=== PATIENT | male | born 1995 | race Caucasian/White ===

== ENCOUNTER 2024-07-31 09:15 | Emergency (ER) | payer BC, SELFPAY ==
[2024-07-31 09:24] VITALS: BP 134/82
--- NOTE | 2024-07-31 10:57 | ED.GENMED ---
History of Present Illness
General
Chief Complaint: Male Genito-Urinary Symptoms
Source: patient
Time Seen by Provider: 07/31/24 10:43
History of Present Illness
History of Present Illness:
28yoM presenting for evaluation of testicle pain. Patient had a vasectomy about 18 days ago in [facility]. He was doing well initially. He sneezed about a week ago and had a sharp pain in his testicle. This lasted about 15 minutes before
resolving. He has been having a gradual worsening pain over the past week or so. He was seen by his urologist 5 days ago and was prescribed doxycycline x 1 week. Patient reports left testicle swelling over the past 2 days. He is worried that he
may have epididymitis. He denies any issues with urination. No fevers, chills, vomiting, abdominal pain, flank pain.
Phy Exam
General Physical Exam
General Presentation: well appearing and no apparent distress
General age: appears stated age
General Skin: warm and dry
General Habitus: normal
General Mental: alert
ENT Exam
ENT Exam: normocephalic
Pulmonary Exam
Pulmonary Exam: no respiratory distress
Gastrointestinal Exam
Gastrointestinal Exam: non tender, soft and non distended
Genitourinary Exam Male
Exam Male: circumcised and other (Mild swelling noted to L testicle with diffuse tenderness. No skin changes. Small scabs noted to vasectomy incision sites. No drainage or erythema noted.)
Neurological Exam
Neurological Exam: alert
[place] Coma Scale
Eye Opening: Spontaneous
Verbal Response: Oriented
Motor Response: Obeys Commands
GCS Total Score: 15
Skin Exam
Skin Exam: normal color and warm/dry
Psychiatric Exam
Psychiatric Exam: normal mood/affect
Course
Orders/Labs/Results
Orders:
Orders
07/31/24 09:46
US Scrotum Urgent
Comment:
Reason For Exam: testicular pain
07/31/24 12:08
Urinalysis Reflex To Culture Urgent
Date Specimen was Collected: 07/31/24
Time Specimen was Collected: 11:14
Chlamydia/GC by PCR Urgent
CINTHYA Source: Urine
Specimen Description:
Source:: URINE
Date Specimen was Collected: 07/31/24
Time Specimen was Collected: 11:14
07/31/24 12:58
Ceftriaxone Sodium [Rocephin] 500 mg IM NOW STA
07/31/24 13:24
Sterile Water [Sterile Water For Injection] 10 ml .ROUTE .[facility]
Vital Signs
Initial and Last Documented VS:
Initial Vital Signs
Temp Pulse Resp BP Pulse Ox
99.4 F 115 16 134/82 98
07/31/24 09:24 07/31/24 09:24 07/31/24 09:24 07/31/24 09:24 07/31/24 09:24
Last Documented Vital Signs
Temp Pulse Resp BP Pulse Ox
99.2 F 91 16 130/91 98
07/31/24 13:29 07/31/24 13:29 07/31/24 13:29 07/31/24 13:29 07/31/24 13:29
MDM/Problems Addressed
Differential Diagnosis Includes:
28yoM here with testicle pain worsening x 1 week and L testicle swelling x 2 days. S/p vasectomy 18 days ago in [facility]. No f/c or issues with urination. Currently on doxycycline. He is well appearing in no distress. There is mild L scrotal
swelling noted with tenderness. No skin changes noted. Differential diagnosis includes but is not limited to: epididymitis, orchitis, postop complication, UTI, STD
Initial ED plan: Check UA, GC/chlamydia testing, and scrotal ultrasound.
*Critical Care Note
Total Time (30-74mins, 75-104mins- exclusive of procedures): Not Applicable
Update Note
Update Note:
UA bland without signs of infection. Scrotal ultrasound is normal without evidence of epididymitis or hydrocele. Patient requesting 'stronger antibiotic.' Offered empiric treatment for gonorrhea which he is interested in. IM Rocephin ordered.
Supportive care discussed including scrotal elevation, ice, and NSAIDs. He was advised to follow-up with his urologist. ED return precautions discussed. He was discharged in stable condition.
ED Attending Note
-
Portions of this chart may have been created with voice recognition software.� Occasional wrong word or��sound alike� substitutions may have occurred due to the inherent limitations of voice recognition software.
Discharge Plan
Departure
Patient Disposition: Home (Routine Discharge)
Date of Disposition: 07/31/24
Time of Disposition: 12:59
Patient with high blood pressure during this ER visit?: No
Discharge Problem:
Testicular pain
Instructions: How to Perform a Testicular Self-Exam
Referrals:
NONE,* [Family Provider] -
Activity Restrictions/Additional Instructions:
Elevate your scrotum, apply ice, and take ibuprofen as needed for pain.
Please follow-up with your urologist. Return to the ER with any worsening symptoms, severe pain, fevers.
Interventions
Interventions:
*Risk Screen - Suicide Last Done: 07/31/24 09:24
*General Assessment Last Done: 07/31/24 09:24
*Neglect/Abuse Screening Last Done: 07/31/24 09:24
ED- Fall Risk Assessment Last Done: 07/31/24 14:28
*Nursing Disposition Last Done: 07/31/24 14:28
ED-Male Genitourinary Assessment Last Done: 07/31/24 10:43
Discharge Date and Time
Discharge Date/Time: 07/31/24 14:29
Print Language: SPANISH
[2024-07-31 12:20] LABS: Urine Albumin Negative (Neg - Trace); Urine Bilirubin Negative (Negative); Urine Character Clear (Clear); Urine Color Yellow; Urine Glucose Negative (Negative); Urine Ketone Negative (Negative); Urine Leukocyte Negative (Negative); Urine Nitrite Negative (Negative); Urine Occult Blood Negative (Negative); Urine Urobilinogen Negative (Neg - 1+); Urine pH 6.5 (5.0-9.0)
[2024-07-31] MEDS: ROCEPHIN 500 MG IM (13:26)
[2024-07-31 13:29] VITALS: BP 130/91
== END 2024-07-31 14:29 | disposition home or self-care (01) ==
LOC: EMR 09:15
PROVIDERS: Physician Assistant; EMERGENCY PHYSICIAN Emergency Medicine
DX: N50.819 Testicular pain, unspecified (principal); N50.82 Scrotal pain
CPT/HCPCS: 99284; 76870; 81003; 87491; 87591; 93976